=== PATIENT | female | born 1930 | race Caucasian/White ===

== ENCOUNTER 2019-08-20 16:22 | Observation (INO) | payer MEDICARE ==
[~2019-08-20] VITALS: Ht 165.1 cm; Wt 70.5 kg
[2019-08-20 16:43] LABS: BASOPHILS % (AUTO) 0.7 % (0.0-5.0); HEMATOCRIT 38.8 % (36-48); LYMPHOCYTES % (AUTO) 23.9 % (21.0-51.0); MEAN CORPUSCULAR HEMOGLOBIN 31.9 pg (27.0-33.0); MEAN CORPUSCULAR HGB CONC 33.2 g/dL (32.0-36.0); MONOCYTES % (AUTO) 12.5 % (3.0-13.0); NEUTROPHILS % (AUTO) 60.7 % (40.0-77.0); PLATELET COUNT (AUTO) 177 K/uL (130-400); RED BLOOD CELL COUNT(AUTO) 4.04 MIL/uL (4.00-5.50); RED CELL DISTRIBUTION WIDTH 12.7 % (11.0-15.5); WHITE BLOOD COUNT (AUTO) 6.1 K/uL (4.8-10.8)
[2019-08-20 16:56] LABS: INR 0.94 (0.85-1.15); PARTIAL THROMBOPLASTIN TIME 28.7 SEC (26.3-35.5); PROTHROMBIN TIME 10.2 SEC (9.6-11.6)
[2019-08-20 16:56] LABS: APPEARANCE,URINE Clear (CLEAR); BILIRUBIN,URINE Negative (NEGATIVE); COLOR,URINE Yellow (YELLOW); GLUCOSE, URINE (UA) Negative (NEGATIVE); KETONES,URINE Trace mg/dL (NEGATIVE); LEUKOCYTE ESTERASE ,URINE Small (NEGATIVE); NITRATE,URINE Negative (NEGATIVE); OCCULT BLOOD,URINE Negative (NEGATIVE); PROTEIN,URINE Negative (NEGATIVE)
[2019-08-20 16:57] LABS: CREATININE 1.7 mg/dL (0.5-1.5); POTASSIUM 4.7 mmol/L (3.5-5.1)
[2019-08-20 17:02] LABS: ALBUMIN 3.7 g/dL (3.5-5.0); BILIRUBIN,TOTAL 0.4 mg/dL (0.2-1.0)
[2019-08-20 17:20] LABS: BACTERIA,URINE Few /HPF (None Seen)
[2019-08-20 17:21] LABS: MUCUS,URINE Few LPF (None Seen); SQUAMOUS EPITHELIAL CELL,UR Few /HPF (0-2)
[2019-08-20 18:51] LABS: B-TYPE NATRIURETIC PEPTIDE 108 pg/mL (0-100)
[2019-08-21] MEDS ORDERED: ACETAMINOPHEN 325 MG TAB ONE (00:50)
[2019-08-21 01:25] VITALS: BP 115/96
[2019-08-21] MEDS ORDERED: ACETAMINOPHEN 325 MG TAB PO PRN (01:45)
[2019-08-21 03:25] VITALS: BP 131/78
[2019-08-21] MEDS: SODIUM CHLORIDE 0.9% 1000ML 1,000 ML IV SCH ×3 (04:13→20:48)
[2019-08-21 05:21] LABS: HEMATOCRIT 39.1 % (36-48); MEAN CORPUSCULAR HEMOGLOBIN 31.1 pg (27.0-33.0); MEAN CORPUSCULAR HGB CONC 32.7 g/dL (32.0-36.0); MEAN CORPUSCULAR VOLUME 95.1 fL (79-99); RED BLOOD CELL COUNT(AUTO) 4.11 MIL/uL (4.00-5.50); RED CELL DISTRIBUTION WIDTH 12.3 % (11.0-15.5); WHITE BLOOD COUNT (AUTO) 6.4 K/uL (4.8-10.8)
[2019-08-21 05:52] LABS: CREATININE 1.1 mg/dL (0.5-1.5); POTASSIUM 4.4 mmol/L (3.5-5.1)
[2019-08-21 07:49] VITALS: BP 137/80
--- NOTE | 2019-08-21 09:00 | NUR ---
I HAVE CALLED PT'S TO ASK HIM FOR PT'S HOME MEDICATION NAMES AND HE STATED TO CHECK WITH HIS THAT SHE PROBABLY HAD THEM WITH HER BUT HE WOULD CHECK AT HOME.
[2019-08-21 10:40] VITALS: BP 144/79
--- NOTE | 2019-08-21 13:00 | NUR ---
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 HE ALSO STATED TO CALL DR JIMMY CANO TO GET HER LIST OF HOME MEDICATIONS; I TOLD HIM TO CALL BACK LATER AND WE CAN UPDATE HIM ON HOW THE TESTING WENT TODAY.
[2019-08-21 16:00] VITALS: BP 139/78
--- NOTE | 2019-08-21 16:18 | NUR ---
I RECEIVED A CALL FROM DR BORJA AND INFORMED HIM OF MRI BRAIN AND MRA HEAD RESULTS AND RECEIVED ORDER TO START ASPIRIN 81 MG
[2019-08-21] MEDS: ASPIRIN 81MG TAB.CHEW PO SCH (16:35)
[2019-08-21] MEDS ORDERED: AEC81 PO (18:36)
[2019-08-21] MEDS ORDERED: MV-M1TAB20 PO (18:36)
[2019-08-21] MEDS ORDERED: CEFTRIAXONE SODIUM 1 GM IV SCH (19:45)
[2019-08-21 19:47] VITALS: BP 141/78
[2019-08-21] MEDS ORDERED: HYAL1CAP PO (20:28)
[2019-08-21] MEDS ORDERED: MV-M1TAB2 PO (20:40)
[2019-08-21] MEDS ORDERED: OMEG1CAP67 PO (20:40)
[2019-08-21] MEDS ORDERED: SIMV-43 PO (20:40)
[2019-08-21] MEDS ORDERED: LISI-613 PO (20:40)
[2019-08-21] MEDS ORDERED: KRIL1CAP18 PO (20:40)
[2019-08-21] MEDS ORDERED: BACL10TA PO (20:40)
[2019-08-21] MEDS ORDERED: OMEP40CA13 PO (20:40)
[2019-08-21] MEDS ORDERED: FLAX100020 PO (20:40)
[2019-08-21] MEDS ORDERED: BIOT10004 PO (20:40)
[2019-08-21] MEDS ORDERED: MELO-106 PO (20:40)
[2019-08-21] MEDS ORDERED: UBID400C6 PO (20:40)
[2019-08-21] MEDS ORDERED: GABA300S PO (20:40)
[2019-08-21] MEDS: BACLOFEN 10 MG TABLET PO PRN (21:40)
[2019-08-21] MEDS: GABAPENTIN 300 MG CAPSULE PO SCH (21:40)
[2019-08-22 01:05] VITALS: BP 145/79
[2019-08-22 03:51] VITALS: BP 144/80
[2019-08-22 04:34] LABS: BASOPHILS % (AUTO) 0.7 % (0.0-5.0); EOSINOPHILS % (AUTO) 2.5 % (0.0-8.0); LYMPHOCYTES % (AUTO) 36.3 % (21.0-51.0); MEAN CORPUSCULAR HEMOGLOBIN 31.5 pg (27.0-33.0); MEAN CORPUSCULAR HGB CONC 33.2 g/dL (32.0-36.0); MEAN CORPUSCULAR VOLUME 94.6 fL (79-99); MONOCYTES % (AUTO) 10.8 % (3.0-13.0); NEUTROPHILS % (AUTO) 49.5 % (40.0-77.0); PLATELET COUNT (AUTO) 174 K/uL (130-400); RED BLOOD CELL COUNT(AUTO) 3.91 MIL/uL (4.00-5.50); RED CELL DISTRIBUTION WIDTH 12.2 % (11.0-15.5); WHITE BLOOD COUNT (AUTO) 5.6 K/uL (4.8-10.8)
[2019-08-22 04:58] LABS: CREATININE 0.9 mg/dL (0.5-1.5); POTASSIUM 4.1 mmol/L (3.5-5.1)
[2019-08-22 07:30] VITALS: BP 163/86
[2019-08-22] MEDS ORDERED: FISH OIL 1000 MG/CAP PO SCH (09:00)
[2019-08-22] MEDS ORDERED: PANTOPRAZOLE SODIUM 40 MG TABLET.DR PO SCH (09:00)
[2019-08-22] MEDS ORDERED: CO Q10 PO SCH (09:00)
[2019-08-22] MEDS: ASPIRIN 81MG TAB.CHEW PO SCH (09:44)
[2019-08-22] MEDS: BACLOFEN 10 MG TABLET PO PRN (09:44)
[2019-08-22] MEDS: GABAPENTIN 300 MG CAPSULE PO SCH (09:44)
--- NOTE | 2019-08-22 09:47 | NUR ---
PT REQUESTING BACLOFEN, SHE STATES SHE TAKES IT EVERY MORNING AT HOME TO AVOID PAIN FROM HER ARTHRITIS
[2019-08-22 11:00] VITALS: BP 163/86
[2019-08-22 16:00] VITALS: BP 163/83
--- NOTE | 2019-08-22 16:46 | NUR ---
PT STATES UNDERSTANDING OF ALL D/C INSTRUCTIONS, INCLUDING F/U WITH DR Tamika CANO TOMORROW AND TO CALL FOR F/U WITH DR BORJA SINCE HIS OFFICE WAS ALREADY CLOSED FOR THE DAY; I HAVESPOKEN TO PT'S FAMILY AND INFORMED THEM OF PT'S D/C; IV ACCESS REMOVED; PT WANTS TO EAT DINNER HERE THEN SHE WILL CALL HER TO PICK HER UP. PT INSTRUCTED TO RETURN TO ED IF SYMPTOMS RETURN.
[2019-08-22] MEDS ORDERED: SIMVASTATIN 20 MG TABLET PO SCH (21:00)
[2019-08-22] MEDS ORDERED: LISINOPRIL 20 MG TABLET PO SCH (21:00)
== END 2019-08-22 17:30 | disposition home or self-care (01) ==
LOC: EDH 16:22 → EDHIP 20:01 → 3CH 22:12
PROVIDERS: ADMIT Internal Medicine Critical Care Medicine; ATTEND Internal Medicine Critical Care Medicine
DX: I63.9 Cerebral infarction, unspecified (principal); N17.9 Acute kidney failure, unspecified; R29.810 Facial weakness; R41.82 Altered mental status, unspecified; E11.9 Type 2 diabetes mellitus without complications; I10 Essential (primary) hypertension; Z86.73 Personal history of transient ischemic attack (TIA), and cerebral infarction without residual deficits; Z79.82 Long term (current) use of aspirin; Z91.048 Other nonmedicinal substance allergy status; I65.23 Occlusion and stenosis of bilateral carotid arteries
CPT/HCPCS: 36415 ×3; 70450; 70544; 70551; 71045; 72141; 80048 ×2; 80053; 81001; 82140; 82550; 82948; 83605; 83880; 84484; 85025 ×2; 85027; 85610; 85730; 87040 ×2; 87088; 93005; 93306; 93356; 93880; 94660; 96361 ×2; 96374; 97039 ×3; 97116; 97161; 99285; G0378 ×5; G8978; G8979; G8980; G8981; G8982; G8983; J0696